=== PATIENT | female | born 1985 | race Caucasian/White ===

== ENCOUNTER 2019-07-21 12:02 | Emergency (ER) | payer MEDICAID, SELFPAY ==
[2019-07-21 12:03] VITALS: BP 124/78; PULSE 109; RESP 18; TEMP 36.4; O2SAT 98
--- NOTE | 2019-07-21 12:29 | ED.DCSUM_ITS ---
- ER Visit Summary Date of Service: 07/21/19 Chief Complaint: Right sciatica pain History of Present Illness: The patient is a 33 F history of prior sciatica. Also depression migraine headaches. No prior surgeries. Patient states for 2 months she has had right sciatic pain. She is been seen in the urgent care prescribed Naprosyn and Flexeril and prednisone. She is not having significant improvement. Denies any bowel or bladder incontinence. No weakness. This is right-sided. Worse when she lifts her leg. She has had no prior back surgery. No fever. No falls or trauma. Physical Examination: Younger female no acute distress vital signs stable afebrile. H EENT exam unremarkable. Neck nontender. Lungs clear to auscultation. Heart regular rhythm no murmur. Abdomen soft nontender. Patient is moving all 4 extremities. Neurovascular intact. Normal motor strength in her hands and feet. Normal dorsi plantarflexion. No cauda equina. No saddle anesthesia. Positive straight leg raise test on the right at 15 degrees left normal. Back exam spine nontender. Right SI joint tender to palpation. No ecchymosis or bruising no signs of trauma, redness or warmth. Neurologically she is awake alert with no focal motor deficits. Test Results: None Emergency Department Course and Treatment: Exam and history are consistent with acute right sciatica. Patient requested a trial of gabapentin. Treatment Plan: Gabapentin. Follow-up with her primary care physician. Continue her Naprosyn. Ice to the area. MRI if not improving. Disposition: Discharge Impression: Acute right sciatica This note was generated with [employer] dictation software. It may contain incorrect words, spelling, and punctuation that were not noted in review of the chart prior to signing ED Disposition - Plan for ED Patient: Referrals: Saqib Burgos MD [Primary Care Provider] -
--- NOTE | 2019-07-21 12:31 | ED.DEP ---
ED Disposition - Plan for ED Patient: Disposition: Home or Assisted Living Instructions: Understanding Sciatica Prescriptions: Gabapentin [Neurontin] 300 mg PO BIDCM #33 cap Prescription Printed Referrals: Saqib Burgos MD [Primary Care Provider] - 1 Week if not improving Additional Instructions: Continue ice to the area. Continue Naprosyn. Gabapentin as prescribed. Follow-up with your doctor if not improving.
== END 2019-07-21 13:04 | disposition home or self-care (01) ==
LOC: ED 12:45
PROVIDERS: Emergency Provider Emergency Medicine; PCP Family Medicine
DX: M54.31 Sciatica, right side (principal)
CPT/HCPCS: 99282

== ENCOUNTER → 2024-05-16 | Outpatient (CLI) | payer MEDICAID, SELFPAY ==
[2024-05-22 13:07] LABS: HPV APTIMA, High Risk Negative (Negative)
== END | disposition home or self-care (01) ==
LOC: LABSPEC 16:53
PROVIDERS: PCP Family Medicine; Referring Provider Nurse Practitioner Family; Visit Provider Nurse Practitioner Family
DX: Z12.4 Encounter for screening for malignant neoplasm of cervix (principal)
CPT/HCPCS: 87624; 88175; G0145